=== PATIENT | male | born 1945 | race Caucasian/White ===

== ENCOUNTER → 2018-01-31 | Day surgery (SDC) | payer OTHER, MEDICARE ==
[~2018-01-31] VITALS: Ht 170.2 cm; Wt 78.5 kg
[~2018-01-31] MED LIST: ANUSOL-HC25 M1 RC; CHLORTHALIDONE25 M1 PO; FINASTERIDE5 M1 PO; FLOMAX0.4 M1 PO; MAGNESIUM400 M1 PO; MEDROL4 M2 PO; NEURONTIN300 M1 PO; NORVASC5 M1 PO; PERCOCET 5-3251 EACH PO; POTASSIUM CHLO20 ME2 PO; VALIUM2 M1 PO; VITAMIN D3400 UNI1 PO; ZOCOR20 M1 PO
--- NOTE | 2018-01-31 12:53 | Operative Report ---
Operative/Inv Procedure Report Surgery Date: 01/31/18 Name of Procedure: 1. Transanal excision of rectal polyp 2 level of submucosa 2. Destruction of internal hemorrhoid I suture ligation 1 Pre-Operative Diagnosis: 1. Rectal polyp 2. Rectal bleeding Post-Operative Diagnosis: 1. Rectal polyp 2. Grade 1 internal hemorrhoid with evidence of bleeding Estimated Blood Loss: scant Surgeon/[employer]: Negro Conroy Jr., DO Anesthesia: local monitored anesthesi, block Monitors: Per routine Drains: None Specimens: Rectal polyp Complications: None Condition: Good Operative Indication: This 72-year-old gentleman referred to me for the evaluation of rectal bleeding. On physical exam he did indeed have internal hemorrhoids however he had a medium sized polyp in the very low rectum. Polyp was pedunculated with friable head, and appeared to be the bleeding source Operative/Procedure Note Note: On the morning before his procedure the patient did a Fleet's enema prior to coming to the hospital. He presented to [facility] was taken into the operating room. IV sedation was initiated with the patient was comfortable he was converted to lithotomy position in [facility]. Next the perineum was prepped and draped in usual fashion. An anal block was performed using 0.5% Marcaine with epinephrine. A total of 30 mL of block was injected. Gentle digital exam and dilation of the anal canal was performed and then a Fansler operating proctoscope was placed in the anal canal. The polyp was immediately visible the posterior midline. The polyp was about a centimeter to 2 cm cephalad to the dentate line. The polyp was pedunculated with a very friable head. The polyp was grasped and amputated at its base with electrocautery. The polyp was then sent for routine follow GI. There was very friable hemorrhoid tissue in the posterior midline caudad to with the polyp was. This looked to be a possible second bleeding source. A figure- of-eight 8 2-0 Vicryl was placed in the hemorrhoid pedicle. Then hemorrhoidpexy was performed, thereby ligating and destroying the hemorrhoid. At this point the procedure was concluded. The perineum was cleansed and dried and a bulky dressing was passed over the opening the anus. The patient legs were letdown and he was placed back in the supine. Patient tolerated the procedure well was taken to recovery area in good condition. At the end of this operational needle sponges and attachments were accounted for. Discharge Disposition: PACU
== END ==
LOC: STS 05:07
DX: D12.8 Benign neoplasm of rectum (principal); K64.0 First degree hemorrhoids; K62.5 Hemorrhage of anus and rectum; I10 Essential (primary) hypertension; Z87.891 Personal history of nicotine dependence
CPT/HCPCS: J3490